=== PATIENT | male | born 1995 | race Caucasian/White ===

== ENCOUNTER 2016-07-11 16:29 | Emergency (ER) | payer OTHER ==
--- NOTE | 2016-07-18 13:38 | ER ---
ADMIT: 07/11/2016 RM/LOC: ER [facility] MR#: [id number] [address] [id number] [place] [address] [place] [id number] Emergency Room Report SEX: M AGE: 20 : 1995 DATE: 07/11/2016 ADDENDUM: Regular physician is Dr. Flores. SUBJECTIVE: This patient comes into the ER because he was at work and was picking up an aluminum siding when it sliced through his left thumb. He has a small piece of tendon that is visible on physical exam. He has a small avulsion of skin on the left thumb, and I am able to see his extensor tendon, it is right over the distal joint. The tendon is lacerated and it is about a quarter of the tendon. He has good range of motion at the 1st joint. I infiltrated the area with lidocaine and then irrigated it under running water for 5 minutes. I then placed 3 interrupted stitches using 4-0 mono soft. I spoke with Dr. Flores. I have put him on Keflex and he is to follow up with Dr. Flores in a week. I also placed him with a splint to immobilize that joint. Please see my T-sheet. SALLIE Osborn / Gilberto Tavarez MD / modl JOB #: [id number] CC: Gilberto Tavarez MD, Attending Physician Giovanni Flores MD, Family Physician
== END 2016-07-12 01:00 | disposition still patient (30) ==
LOC: ER 16:29
PROC: 0HQGXZZ Repair Left Hand Skin, External Approach (ICD-10-PCS; principal; 2016-07-11)
DX: S66.022A Laceration of long flexor muscle, fascia and tendon of left thumb at wrist and hand level, initial encounter (principal); Z23 Encounter for immunization; W45.8XXA Other foreign body or object entering through skin, initial encounter